=== PATIENT | male | born 1985 | race African-American/Black ===

== ENCOUNTER 2016-08-19 23:44 | Emergency (ER) | payer OTHER ==
[~2016-08-19 23:44] MED LIST: CIPRO PO; FLEXERIL PO; KEFLEX PO; MEDROL PO; NAPROXEN PO; PEN-VEE K PO; PREDNISONE PO; TYLENOL #3 PO; VOLTAREN50 MG PO
== END 2016-08-20 | disposition home or self-care (01) ==
LOC: CFTX 23:44
DX: J02.9 Acute pharyngitis, unspecified (principal); F17.210 Nicotine dependence, cigarettes, uncomplicated
CPT/HCPCS: 87651; 99283

== ENCOUNTER 2016-10-14 02:37 | Emergency (ER) | payer OTHER ==
--- NOTE | ~2016-10-14 | CR142 ---
[facility] A Service of [facility] RADIOLOGY TEXT RESULTS PATIENT: MARLNI GUEVARA LOCATION: [facility] : 81 UNIT #: [id number] AGE: [address]: DAGO GUEVARA SEX: M ORDER DR: [id number] [facility] [address] [place], [place] [address] [id number] E MR#: [id number] Acc #: [id number] NAME: MARLIN GUEVARA : 1985 SEX: M STUDY DATE/TIME: 10/14/2016 04:39 UNIT: ELLY ROOM: STUDY DESCRIPTION: CR Hand Min 3 Views Rt Attending Physician: Dago Guevara Aprn Ordering Physician: Dago Guevara Aprn Primary Care Physician: Primary Care Physician No MEDICAL IMAGING REPORT This report is preliminary unless electronic signature is present EXAM Right hand 10/14/2016 at 04:39 INDICATION Painful bumps on the inside of the hand for the last 4 days. No trauma. FINDINGS AP, lateral, and oblique projections of the hand show good mineralization with normal carpal, metacarpal, and phalangeal anatomy without indication of fracture, dislocation, or soft tissue radiopaque foreign body. IMPRESSION Normal hand. Dictated by... Rom Smith Jr., M.D. THIS IS AN ELECTRONICALLY VERIFIED REPORT Rom Smith Jr., M.D. at 10/15/2016 5:23 AM SUDHEER/ruthie TD: 10/14/2016 21:32 JOB #: [id number] MEDICAL IMAGING REPORT Page 1 of 1 COPY
[2016-10-14 05:58] LABS: URINE SOURCE CLEAN CATCH
[2016-10-14 06:02] LABS: URINE APPEARANCE CLEAR; URINE BILIRUBIN NEG (NEG); URINE BLOOD NEG (NEG); URINE COLOR YELLOW; URINE GLUCOSE NEG (NEG); URINE KETONE TRACE (NEG); URINE LEUKOCYTE ESTERASE NEG (NEG); URINE NITRATE NEG (NEG); URINE PROTEIN NEG (NEG); URINE SPECIFIC GRAVITY 1.021 (1.003-1.035)
[2016-10-14 06:07] LABS: CULTURE INDICATED? NO
[2016-10-17 11:46] LABS: CHLAMYDIA TRACH Not Detected (Not Detected); N GONOR Not Detected (Not Detected)
== END 2016-10-14 06:33 | disposition home or self-care (01) ==
LOC: CED 02:37
PROVIDERS: Nurse Practitioner Family
DX: R30.0 Dysuria (principal); M79.641 Pain in right hand; F17.210 Nicotine dependence, cigarettes, uncomplicated
CPT/HCPCS: 73130; 81003; 87491; 87591; 99283

== ENCOUNTER 2016-11-21 00:18 | Emergency (ER) | payer OTHER ==
[2016-11-21 02:31] LABS: URINE SOURCE CLEAN CATCH
[2016-11-21 02:38] LABS: URINE APPEARANCE CLEAR; URINE BILIRUBIN NEG (NEG); URINE BLOOD NEG (NEG); URINE COLOR YELLOW; URINE GLUCOSE NEG (NEG); URINE KETONE NEG (NEG); URINE LEUKOCYTE ESTERASE 1+ (NEG); URINE NITRATE NEG (NEG); URINE PROTEIN NEG (NEG); URINE SPECIFIC GRAVITY 1.014 (1.003-1.035); URINE UROBILINOGEN 0.2 MG/DL (NEG)
[2016-11-21 02:41] LABS: CULTURE INDICATED? YES; URBCS1 AUWI 0-2 /[HPF] (0-2); URINE BACTERIA AUWI NEG (NEGATIVE); URINE SQUAMOUS EPITHELIAL CELL NONE SEEN /[HPF]
[2016-11-23 23:17] LABS: CHLAMYDIA TRACH Not Detected (Not Detected); N GONOR Detected (Not Detected)
== END 2016-11-21 03:15 | disposition home or self-care (01) ==
LOC: CED 00:18
PROVIDERS: Emergency Medicine
DX: N34.2 Other urethritis (principal); F17.210 Nicotine dependence, cigarettes, uncomplicated
CPT/HCPCS: 81003; 87086; 87491; 87591; 96372; 99283; J0696